=== PATIENT | female | born 2000 | race Caucasian/White ===

== ENCOUNTER 2021-03-24 12:09 | Inpatient (IN) | payer OTHER ==
[~2021-03-24] VITALS: Ht 177.8 cm; Wt 107.0 kg
[2021-03-24 12:37] LABS: AMPHETAMINES NEGATIVE (NEGATIVE); BARBITURATES NEGATIVE (NEGATIVE); ECSTASY (MDMA) NEGATIVE (NEGATIVE); MARIJUANA (THC) NEGATIVE (NEGATIVE); METHADONE NEGATIVE (NEGATIVE); OPIATES NEGATIVE (NEGATIVE); OXYCODONE NEGATIVE (NEGATIVE)
[2021-03-24 19:11] LABS: HCT 35.7 % (37.0-47.0); HGB 12.2 g/dl (12.5-16.0); MCH 30.3 pg (25.0-31.0); MCHC 34.2 g/dL (32.0-36.0); MCV 88.6 fL (78.0-100.0); MPV 11.1 fL (6.0-9.5); RBC 4.03 M/uL (4.20-5.40); RDW 13.3 % (11.5-14.0); WBC 9.9 K/uL (4.0-10.5)
[2021-03-24 21:17] LABS: BILIRUBIN NEGATIVE (NEGATIVE); BLOOD NEGATIVE Ery/uL (NEGATIVE); CLARITY CLEAR (CLEAR); COLOR YELLOW (YELLOW); GLUCOSE (U) NORMAL (NORMAL); LEUKOCYTES NEGATIVE Leu/uL (NEGATIVE); NITRITE NEGATIVE (NEGATIVE); PROTEIN NEGATIVE (NEGATIVE); UROBILINOGEN 0.2 mg/dL (0.2-1.0)
[2021-03-26 06:01] LABS: HCT 33.2 % (37.0-47.0); HGB 11.2 g/dl (12.5-16.0); MCHC 33.7 g/dL (32.0-36.0); MPV 10.5 fL (6.0-9.5); RBC 3.73 M/uL (4.20-5.40); RDW 13.2 % (11.5-14.0); WBC 10.7 K/uL (4.0-10.5)
[2021-03-26] MEDS ORDERED: IBUPROFEN800 M1 PO (10:18)
[2021-03-26] MEDS ORDERED: PRENATAL FORMU1 EACH PO (10:18)
[2021-03-26] MEDS ORDERED: COLACE100 MG PO (10:18)
== END 2021-03-27 12:46 | disposition home or self-care (01) | DRG 806 ==
LOC: FOD 12:09 → FOB 12:09 → FOD 19:02 → FOB 19:03
PROVIDERS: ADMIT Obstetrics & Gynecology
PROC: 0U7C7ZZ Dilation of Cervix, Via Natural or Artificial Opening (ICD-10-PCS; principal; 2021-03-24)
PROC: 4A1HX4Z Monitoring of Products of Conception, Cardiac Electrical Activity, External Approach (ICD-10-PCS; 2021-03-24)
PROC: 10E0XZZ Delivery of Products of Conception, External Approach (ICD-10-PCS; 2021-03-25)
PROC: 0HQ9XZZ Repair Perineum Skin, External Approach (ICD-10-PCS; 2021-03-25)
PROC: 3E0234Z Introduction of Serum, Toxoid and Vaccine into Muscle, Percutaneous Approach (ICD-10-PCS; 2021-03-27)
DX: O24.429 Gestational diabetes mellitus in childbirth, unspecified control (principal); O36.0930 Maternal care for other rhesus isoimmunization, third trimester, not applicable or unspecified; Z37.0 Single live birth; Z3A.39 39 weeks gestation of pregnancy; O76 Abnormality in fetal heart rate and rhythm complicating labor and delivery; Z20.822 Contact with and (suspected) exposure to COVID-19; O26.899 Other specified pregnancy related conditions, unspecified trimester; R82.5 Elevated urine levels of drugs, medicaments and biological substances; Z78.9 Other specified health status; F31.9 Bipolar disorder, unspecified; O70.0 First degree perineal laceration during delivery
CPT/HCPCS: 36415; 80305; 81003; 85461; 86850; 86900; 86901; J0595; J2210; J2405; J2790; J3430; J7120; U0002